=== PATIENT | male | born 1985 | race Caucasian/White ===

== ENCOUNTER 2018-07-16 11:24 | Emergency (ER) | payer OTHER ==
[~2018-07-16] VITALS: Ht 177.8 cm; Wt 58.2 kg
[2018-07-16 11:28] VITALS: BP 134/95
[2018-07-16] MEDS ORDERED: LIDOcaine 1% w/epiNEPHrine 1:200,000 30ml vial IM ONE (12:05)
[2018-07-16] MEDS ORDERED: HYDROcodone/acetaminophen 10/325mg tab PO ONE (12:05)
[2018-07-16] MEDS ORDERED: CEPH-572 PO (12:09)
[2018-07-16] MEDS ORDERED: TRAM50TA2 PO (12:09)
== END 2018-07-16 13:23 | disposition home or self-care (01) ==
LOC: ER 11:25
DX: S31.010A Laceration without foreign body of lower back and pelvis without penetration into retroperitoneum, initial encounter (principal); R07.81 Pleurodynia; V86.69XA Passenger of other special all-terrain or other off-road motor vehicle injured in nontraffic accident, initial encounter; Y93.89 Activity, other specified; Y92.413 State road as the place of occurrence of the external cause; Y99.9 Unspecified external cause status
CPT/HCPCS: 12002; 71045; 99284; J3490; 12001

== ENCOUNTER 2018-07-27 11:59 | Emergency (ER) | payer OTHER ==
[~2018-07-27] VITALS: Ht 177.8 cm; Wt 59.0 kg
[~2018-07-27 11:59] MED LIST: CEPH-572 PO; TRAM50TA2 PO
[2018-07-27 12:29] VITALS: BP 108/78
== END 2018-07-27 12:58 | disposition home or self-care (01) ==
LOC: ER 12:00
DX: S31.010D Laceration without foreign body of lower back and pelvis without penetration into retroperitoneum, subsequent encounter (principal); Z79.899 Other long term (current) drug therapy; V86.69XD Passenger of other special all-terrain or other off-road motor vehicle injured in nontraffic accident, subsequent encounter
CPT/HCPCS: 99281